=== PATIENT | male | born 1970 | race Caucasian/White ===

== ENCOUNTER → 2017-06-26 | Outpatient (CLI) | payer MEDICAID, MEDICARE ==
[~2017-06-26] MED LIST: AMLO10TA2 PO; ATOR40TA16 PO; DOXA1TAB34 PO; FERR325T18 PO; FURO40TA PO; HUMU70IN SQ; HYDR-3801 PO; KLOR10TA PO; LOSA100T PO; RENATAB6 PO; TUMS500C CHEW
[2017-06-26 12:39] LABS: HEMOGLOBIN 11.3 GM/DL (13.0-17.0); MEAN CELL VOLUME 83.3 FL (80.0-100.0); MEAN CORPUSCULAR HEMOGLOBIN 28.4 PG (27.0-34.0); MEAN CORPUSCULAR HGB CONC 34.1 % (32.0-36.0); MEAN PLATELET VOLUME 7.8 FL (7.0-11.0); PLATELET COUNT 235 TH/MM3 (150-450); RED BLOOD COUNT 3.97 MIL/MM3 (4.50-5.90); RED CELL DISTRIBUTION WIDTH 14.1 % (11.6-17.2); WHITE BLOOD COUNT 6.7 TH/MM3 (4.0-11.0)
[2017-06-26 12:47] LABS: INTERNATIONAL NORMALIZED RATIO 0.9 RATIO; PROTHROMBIN TIME - PATIENT 9.6 SEC (9.8-11.6)
[2017-06-26 13:10] LABS: BICARBONATE 25.5 MEQ/L (21.0-32.0); CALCIUM 8.6 MG/DL (8.5-10.1)
[2017-06-26 13:11] LABS: CREATININE 7.34 MG/DL (0.60-1.30)
== END ==
LOC: CPRE 11:03 → EDUNIT# 12:00
PROVIDERS: ATTEND Surgery
DX: Z01.812 Encounter for preprocedural laboratory examination (principal); N18.6 End stage renal disease
CPT/HCPCS: 36415; 80048; 85027; 85610

== ENCOUNTER → 2017-07-12 | Day surgery (SDC) | payer MEDICAID ==
[~2017-07-12] VITALS: Ht 175.3 cm; Wt 123.3 kg
[~2017-07-12] MED LIST changes: +BUPIVACAINE HCL PF 0.5% 30 ML VIAL ONE; +CHLORHEXIDINE GLUCONATE 2 % 1 PACK (2 CLOTHS) TOPICAL PRN; +DEXAMETHASONE SOD PHOS 4 MG/ML VIAL IV ONE; +DO NOT ADM ANY ANTICOAGULANT DRUGS PRN; +HEPARIN SODIUM - IV 10,000 UNITS/10 ML VIAL ONE; +HEPARIN-NS/PF INJ 500 ML ONE; +INSULIN HUMAN REGULAR 1,000 UNITS/10 ML VIAL SQ PRN; +LACTATED RINGER'S 1000 ML IV PRN; +LIDOCAINE HCL 1% PF 5 ML SYRINGE OTHER ONE; +METOPROLOL TARTRATE 25 MG TAB PO PRN; +ONDANSETRON HCL 4 MG/2 ML VIAL IV ONE; +PHENYLEPH/NS 1000 MCG/10 ML SYR IV ONE; +POVIDONE IODINE 5% (ANTISEPSIS KIT) 4 APPLICATIONS EACH NARE PRN; +PROPOFOL 200 MG/20 ML AMP IV ONE; +PROTAMINE SULFATE 50 MG/5 ML VIAL ONE; +ROCURONIUM INJ 50 MG/5 ML SYRINGE IV PUSH ONE; +SODIUM CHLORID 0.9% 500 ML IV PRN; +SUCCINYLCHOLINE CHLORIDE 200 MG/10 ML VIAL IV ONE; +SUGAMMADEX SODIUM 200 MG/2 ML VIAL IV PUSH ONE; +VANCOMYCIN HCL 1000 MG VIAL ONE; +ePHEDrine/NS 25 MG/5 ML SYRINGE IV ONE
--- NOTE | 2017-07-12 07:29 | PD.VS.PN ---
Pre-operative Note Pre-operative diagnosis: ESRD, need for HD access Planned procedure: LEFT brachiocephalic AVF Interval History: Pt has been feeling well; no complaints ready for surgery Labs: pending Blood: none needed Orders: NPO Vanc 1g IV OCTOR Post-operative destination: PACU Operative site marked: Yes Consent: Informed consent has been obtained from Issac La. I have explained the procedure in detail and discussed the risks, benefits, and potential complications. All questions have been answered. Leonard Calle MD Jul 12, 2017 07:29
--- NOTE | 2017-07-12 09:05 | HHI.PR ---
cc: Leonard Calle MD Immediate Post Op Note Procedure Date: Jul 12, 2017 Pre Op Diagnosis: ESRD, need for HD access Post Op Diagnosis: ESRD, need for HD access Surgeon: Leonard Calle Channel Lip Stiffener Insoles(s): Leonard Rivera Procedure: L brachiocephalic AVF Findings: 3mm vein, 5mm artery Complications: none Estimated blood loss: 10mL Anesthesia: General Drains: None Fluids: 150mL IVF Patient to: PACU Patient Condition: Fair Implant/Devices: SEE IMPLANT LOG (if applicable) Date/Time of Procedure: SEE SURGICAL CARE RECORD Leonard Calle MD Jul 12, 2017 09:05
--- NOTE | 2017-07-12 09:24 | EKG ---
Date Performed: 07/12/2017 Time Performed: 08:05:18 PTAGE: 46 years EKG: Sinus rhythm LEFT ANTERIOR FASCICULAR BLOCK ABNORMAL ECG NO PREVIOUS TRACING DOCTOR: Rebeka Zavala Interpretating Date/Time 07/12/2017 09:23:49
--- NOTE | 2017-07-12 10:07 | MP ---
cc: Leonard Calle MD DATE OF OPERATION: 07/12/2017 PREOPERATIVE DIAGNOSIS: End-stage renal disease, needs dialysis access. POSTOPERATIVE DIAGNOSIS: End-stage renal disease, needs dialysis access. PROCEDURE PERFORMED: Left brachiocephalic arteriovenous fistula. ATTENDING SURGEON: Leonard Calle MD. ANESTHESIA: General. INDICATIONS: Mr. La is a 46-year-old gentleman with end-stage renal disease. He needs dialysis access as he is currently dialyzing through his catheter. He has preoperative ultrasound which suggested his left cephalic vein was adequate. He was taken to the operating room for a left brachiocephalic fistula. DESCRIPTION OF PROCEDURE: Informed consent was obtained from the patient. He was taken to the operating room, placed supine on the operating table and an appropriate time-out was taken to ensure the patient's identity, operative site, and planned procedure. The administration of 1 gram of vancomycin was initiated prior to the skin incision and will be discontinued after a single preoperative dose. Everyone in the room agreed with the time-out and we proceeded. Of note, vancomycin was chosen because of the patient's end-stage renal disease. His left arm was prepped and draped. An incision made in a transverse fashion along the antecubital area and carried down through the subcutaneous tissue with electrocautery. The cephalic vein was identified and dissected free for several centimeters. The brachial artery was identified in the medial aspect of the incision. The distal aspect of the cephalic vein was clamped with a right angle clamp, transected and the distal end was oversewn with silk suture. The patient was systemically heparinized with 3000 units of IV heparin. Proximal and distal control of the brachial artery was obtained with profunda clamps and a longitudinal arteriotomy was made with an 11 blade, extended with Rufus scissors. The vein was spatulated and sewn end-to-side to the brachial artery with running 6-0 Prolene suture. At the completion, the clamps were released. There was a nice thrill in the fistula. It sat quite nicely without twisting and there was a nice palpable pulse in the wrist. The wound was infiltrated with Marcaine and closed with 3-0 Polysorb, 3-0 Polysorb and 4-0 Monocryl. Sponge and needle counts were correct at the end of the case. I was present and scrubbed for the leon and critical portions. MD JORY Greenwood , 09:45 AM , 10:06 AM
[2017-07-12 10:51] VITALS: BP 138/67; PULSE 73; RESP 20; TEMP 97.8; O2SAT 97
== END | disposition home or self-care (01) ==
LOC: HSDC 06:23
PROVIDERS: ATTEND Surgery
DX: N18.6 End stage renal disease (principal); I12.0 Hypertensive chronic kidney disease with stage 5 chronic kidney disease or end stage renal disease; E11.9 Type 2 diabetes mellitus without complications; Z79.4 Long term (current) use of insulin; Z99.2 Dependence on renal dialysis
CPT/HCPCS: 01780; 36818; 82948; 86850; 86900; 86901; 93005; J0330; J1100; J1644; J2370; J2405; J2720; J3010; J3370; J7040